=== PATIENT | female | born 2000 | race Caucasian/White ===

== ENCOUNTER 2021-04-12 14:46 | Inpatient (IN) ==
[2021-04-12 15:42] LABS: Basophils # 0.1 K/mcL (0.0-0.2); Basophils % 0.7 %; Eosinophils % 0.1 %; Hematocrit 41.1 % (35.3-44.9); Hemoglobin 13.8 g/dL (11.5-15.4); Immature Granulocytes % 0.2 % (0-4); Lymphocytes # 1.6 K/mcL (0.6-4.6); Lymphocytes % 18.4 %; Mean Corpuscular HGB Conc 33.6 g/dL (31.6-35.5); Mean Corpuscular Hemoglobin 27.6 pg (28.0-33.3); Mean Corpuscular Volume 82.2 fL (83.0-100.0); Mean Platelet Volume 10.2 fL (9.4-12.4); Monocytes # 0.4 K/mcL (0.0-1.3); Monocytes % 4.3 %; Neutrophils # 6.5 K/mcL (1.6-8.9); Platelet Count 264 K/mcL (140-400); Red Cell Distribution Width 12.5 % (11.5-14.5); Segmented Neutrophils % 76.3 %; White Blood Count 8.5 K/mcL (4.3-11.1)
[2021-04-12 15:50] LABS: Bilirubin,Urine Negative (Negative); Blood,Urine Negative (Negative); Clarity,Urine Clear (Clear); Color,Urine Yellow (Yellow); Glucose,Urine (UA) Normal (Normal); Hyaline Casts,Urine Few per lpf (None Seen); Ketones,Urine 80 mg/dL (Negative); Leukocyte Esterase,Urine Large (Negative); Mucus,Urine Many per lpf (None-Few); Nitrite,Urine Negative (Negative); PH,Urine 6.5 pH Units (5.0-8.0); Protein,Urine 30 mg/dL (Neg-Trace); Specific Gravity,Urine 1.024 (1.010-1.025); Squamous Epithelial Cell,Urine Few per hpf (None-Few); Urobilinogen,Urine Normal (Normal)
[2021-04-12 16:00] LABS: Amphetamine Screen,Urine Negative ng/mL (Cutoff=1000); Barbiturate Screen,Urine Negative ng/mL (Cutoff=200); Benzodiazepines Screen,Urine Negative ng/mL (Cutoff=200); Cannabinoid Screen,Urine Positive ng/mL (Cutoff = 50); Cocaine Screen,Urine Negative ng/mL (Cutoff= 300); Opiate Screen,Urine Negative ng/mL (Cutoff=300); Phencyclidine Screen,Urine Negative ng/mL (Cutoff=25)
[2021-04-12 16:03] LABS: Acetaminophen < 10 mcg/mL (10-20); BUN/Creatinine Ratio 15 (6-26); Blood Urea Nitrogen 10 mg/dL (6-20); Calcium 9.5 mg/dL (8.6-10.3); Carbon Dioxide 21 mEq/L (23-29); Chloride 107 mEq/L (98-107); Chol/HDL Ratio 2.2 (0-4.9); Cholesterol 142 mg/dL (< 200); Ethanol < 10 mg/dL (Less than 10); Glucose 97 mg/dL (70-105); HDL Cholesterol 64 mg/dL (40-59); LDL Cholesterol,Calculated 65 mg/dL (< 100); Osmolality,Calculated 287 (280-300); Potassium 3.7 mEq/L (3.5-5.1); Salicylate < 2.5 mg/dL (15.0-30.0); Sodium 139 mEq/L (136-145); Triglycerides 67 mg/dL (< 150); eGFR For African Americans > 60 (> 60); eGFR For Non-African Americans > 60 (> 60)
[2021-04-12] MEDS: Nicotine 21 MG PATCH.TD24 TD SCH (18:11)
[2021-04-12 18:27] LABS: Adenovirus Not Detected (Not Detect); Bordetella Pertussis Not Detected (Not Detect); Chlamydophila pneumoniae Not Detected (Not Detect); Coronavirus 229E Not Detected (Not Detect); Coronavirus HKU1 Not Detected (Not Detect); Coronavirus NL63 Not Detected (Not Detect); Coronavirus OC43 Not Detected (Not Detect); Human Metapneumovirus Not Detected (Not Detect); Human Rhinovirus/Enterovirus Not Detected (Not Detect); Influenza A Subtype 2009 H1 Not Detected (Not Detect); Influenza B Not Detected (Not Detect); Mycoplasma pneumoniae Not Detected (Not Detect); Parainfluenza Virus 1 Not Detected (Not Detect); Parainfluenza Virus 2 Not Detected (Not Detect); Parainfluenza Virus 3 Not Detected (Not Detect); Parainfluenza Virus 4 Not Detected (Not Detect); Respiratory Syncytial Virus Not Detected (Not Detect); SARS-CoV-2 Not Detected (Not Detect)
[2021-04-12 18:34] LABS: Estimated Average Glucose 97 mg/dl
[2021-04-12] MEDS ORDERED: Acetaminophen 325 MG TABLET PO PRN (18:42)
[2021-04-12] MEDS ORDERED: haloperidoL 5 MG TABLET PO PRN (18:42)
[2021-04-12] MEDS ORDERED: *HR* LORazepam 1 MG TABLET PO PRN (18:42)
[2021-04-12] MEDS ORDERED: *HR* LORazepam 2 MG/ML VIAL IM PRN (18:42)
[2021-04-12] MEDS ORDERED: hydrOXYzine pamoate 25 MG CAPSULE PO PRN (18:42)
[2021-04-12] MEDS ORDERED: traZODone 50 MG TABLET PO PRN (18:42)
[2021-04-12] MEDS ORDERED: Haloperidol Lactate 5 MG/ML VIAL IM PRN (18:42)
[2021-04-13] MEDS ORDERED: MOM Conc 10 ML UD.LIQ PO PRN (08:25)
[2021-04-13] MEDS ORDERED: Mag Hydrox/Al Hydrox/Simeth 30 ML UDC PO PRN (08:25)
[2021-04-13] MEDS ORDERED: Nicotine 21 MG PATCH.TD24 TD SCH (09:00)
[2021-04-13 09:34] VITALS: BP 120/82; PULSE 86; TEMP 98; O2SAT 98
[2021-04-13] MEDS: Nicotine 21 MG PATCH.TD24 TD SCH (09:36)
== END 2021-04-13 11:55 | disposition home or self-care (01) | DRG 885 ==
LOC: EMEROOARM 14:46 → 1ANU 18:36
PROVIDERS: ADMIT Psychiatry & Neurology Psychiatry; ATTEND Psychiatry & Neurology Psychiatry